=== PATIENT | male | born 2000 | race Caucasian/White ===

== ENCOUNTER 2024-10-10 19:14 | Emergency (ER) | payer OTHER, SELFPAY ==
--- NOTE | ~2024-10-10 | XR_ITS ---
XR knee RT 3V Ordering provider: Francisca Renteria MD History: . RIGHT KNEE PAIN X 2 HRS. FELT POP WHILE PLAYING SOCCER. . Comparison: None. FINDINGS: BONES: No acute fracture. Mild lateral dislocation of the patella is possible.. Clinical evaluation a dvised. JOINT SPACES: Normal. SOFT TISSUES: Normal. IMPRESSION: No acute osseous abnormality right knee. Possible mild lateral subluxation of the patella. Clinical evaluation advised. Reviewed, dictated and finalized at location A.
--- OUTSIDE RECORDS SUMMARY | 2024-10-10 19:16 | XMS_ITS | Clinical Summary ---
Author Organization [facility] Address [address] [place] [address] Phone Care Team Providers Care Spring Fitter Name Role Phone Provider, None Primary Care Provider Unavailabl e Allergies No known active allergies Medications No known medications Social History Tobacco Use Types Packs/Day Years Used Date Smoking Tobacco: Former Cigarettes Q uit: 08/05/2020 Smokeless Tobacco: Current Alcohol Use Standard Drinks/Week Comments No 0 (1 standard drink = 0.6 oz pur e alcohol) Sex and Gender Information Value Date Recorded Sex Assigned at Not on file Legal Sex Male 8:12 PM CDT Gender Identity Not on file Sexual Orientation Not on file Last Filed Vital Signs Vital Sign Reading Time Taken Comments Blood Pressure 150/89 08/20/2020 12:01 AM LOG INSPECTOR Pulse 89 08/20/2020 12:01 AM LOG INSPECTOR Temperature 37 C (98.6 F) 01/22/2018 6:52 PM CDT Respiratory Rate 18 08/20/2020 12:01 AM LOG INSPECTOR Oxygen Saturation 99% 08/20/2020 12:01 AM LOG INSPECTOR Inhaled Oxygen Concentration - - Weight 77.1 kg (170 lb) 08/19/2020 9:38 PM LOG INSPECTOR Height 180.3 cm (5' 11 ) 08/19/2020 9:38 PM LOG INSPECTOR Body Mass Index 23.71 08/19/2020 9:38 PM LOG INSPECTOR Plan of Treatment Not on file Insurance [facility] Care Teams Spring Fitter Relationship Specialty Start Date End Date Provider, None [place] PCP - General 08/19/20
--- OUTSIDE RECORDS SUMMARY | 2024-10-10 19:16 | XMS_ITS | Clinical Summary ---
Author Organization [facility] Address [address] [place] [id number] Care Team Providers Care Route Service Manager Name Role Phone None, Provider MD Primary Care Provider Unavaila ble Allergies No known active allergies Medications No known medications Social History Tobacco Use Types Packs/Day Years Used Date Smoking Tobacco: Every Day Cigarettes Smokeless Tobacco: Current Chew Sex and Gender Information Value Date Recorded Sex Assigned at Not on file Legal Sex Male 11:18 AM CDT Gender Identity Not on file Sexual Orientation Not on file Last Filed Vital Signs Vital Sign Reading Time Taken Comments Blood Pressure 154/89 07/21/2020 3:30 PM HARVESTING SUPERVISOR Pulse 87 07/21/2020 3:25 PM HARVESTING SUPERVISOR Temperature 36.7 C (98 F) 07/21/2020 3:25 PM HARVESTING SUPERVISOR Respiratory Rate 18 07/21/2020 3:25 PM HARVESTING SUPERVISOR Oxygen Saturation 100% 07/21/2020 3:25 PM HARVESTING SUPERVISOR Inhaled Oxygen Concentration - - Weight 77.1 kg (170 lb) 07/21/2020 3:25 PM HARVESTING SUPERVISOR Height 180.3 cm (5' 11 ) 07/21/2020 3:25 PM HARVESTING SUPERVISOR Body Mass Index 23.71 07/21/2020 3:25 PM HARVESTING SUPERVISOR Plan of Treatment Health Maintenance Due Date Last Done Comments Annual Physical 2002 Pneumococcal Vaccine: Pediatrics (0 to 5 Years) and At-Risk Patients (6 to 64 Years) (1 of 2 - PCV) 2005 DTaP, Tdap and Td Vaccines (6 - Tdap) 2010 07/19/2004, 03/20/2002, 02/14/2001, Additional history exists HPV Vaccines (2 - Male 2-dose series) 11/13/2013 05/16/2013 Hepatitis C 2017 Hepatitis B Vaccines (1 of 3 - 19+ 3-dose series) 2018 COVID-19 Vaccine (2023- season) 2024 Meningococcal Vaccine Aged Out 05/16/2013 No gonzalez nico eligible based on patient's age to complete this topic Meningococcal B Vaccine Aged Out No l onger eligible based on patient's age to complete this topic RSV Immunizations Under 20 Months Aged Out No longer eligible based on patient's age to complete this topic Insurance [facility] Care Teams Route Service Manager Relationship Specialty Start Date End Date None, Provider, PCP - General 09/25/19
[2024-10-10 19:17] VITALS: BP 151/82; PULSE 103; RESP 18; TEMP 36.8; O2SAT 99
--- OUTSIDE RECORDS SUMMARY | 2024-10-10 19:55 | XMS_ITS | Clinical Summary ---
Author Organization [facility] Address [address] [place] [id number] Care Team Providers Care Lighting Fixtures Decorator Name Role Phone None, Provider MD Primary [...] Comments Blood Pressure 154/89 07/21/2020 3:30 PM HORSE RACING MANAGER Pulse 87 07/21/2020 3:25 PM HORSE RACING MANAGER Temperature 36.7 C (98 F) 07/21/2020 3:25 PM HORSE RACING MANAGER Respiratory Rate 18 07/21/2020 3:25 PM HORSE RACING MANAGER Oxygen Saturation 100% 07/21/2020 3:25 PM HORSE RACING MANAGER Inhaled Oxygen Concentration - - Weight 77.1 kg (170 lb) 07/21/2020 3:25 PM HORSE RACING MANAGER Height 180.3 cm (5' 11 ) 07/21/2020 3:25 PM HORSE RACING MANAGER Body Mass Index 23.71 07/21/2020 3:25 PM HORSE RACING MANAGER Plan of Treatment Health Maintenance Due Date [...] patient's age to complete this topic Insurance [facility] Care Teams Lighting Fixtures Decorator Relationship Specialty Start Date End Date None, Provider, PCP - General 09/25/19
--- OUTSIDE RECORDS SUMMARY | 2024-10-10 19:55 | XMS_ITS | Clinical Summary ---
Author Organization [facility] Address [address] [place] [address] Phone Care Team Providers Care Fat Purification Worker Name Role Phone Provider, None Primary Care [...] Comments Blood Pressure 150/89 08/20/2020 12:01 AM CAD DETAILER Pulse 89 08/20/2020 12:01 AM CAD DETAILER Temperature 37 C (98.6 F) 01/22/2018 6:52 PM CDT Respiratory Rate 18 08/20/2020 12:01 AM CAD DETAILER Oxygen Saturation 99% 08/20/2020 12:01 AM CAD DETAILER Inhaled Oxygen Concentration - - Weight 77.1 kg (170 lb) 08/19/2020 9:38 PM CAD DETAILER Height 180.3 cm (5' 11 ) 08/19/2020 9:38 PM CAD DETAILER Body Mass Index 23.71 08/19/2020 9:38 PM CAD DETAILER Plan of Treatment Not on file Insurance [facility] Care Teams Fat Purification Worker Relationship Specialty Start Date End Date Provider, None [place] PCP - General 08/19/20
--- NOTE | 2024-10-10 20:00 | ED.LOWEXIN ---
HPI - Extremity Injury (Lower) General Chief Complaint: Extremity Injury, Lower Stated Complaint: lower extremity injury Related Data Allergies Allergy/AdvReac Type Severity Reaction Status Date / Time No Known Allergies Allergy Verified 10/10/24 19:29 Course Vital Signs Vital signs: Vital Signs Temperature 36.8 C 10/10/24 19:17 Pulse Rate 103 H 10/10/24 19:17 Respiratory Rate 18 10/10/24 19:17 Blood Pressure 151/82 H 10/10/24 19:17 Pulse Oximetry 99 10/10/24 19:17 Oxygen Delivery Room Air 10/10/24 19:17 Temperature 36.8 C 10/10/24 19:17 Pulse Rate 103 H 10/10/24 19:17 Respiratory Rate 18 10/10/24 19:17 Blood Pressure 151/82 H 10/10/24 19:17 Pulse Oximetry 99 10/10/24 19:17 Oxygen Delivery Room Air 10/10/24 19:17 MDM - Extremity Injury (Lower) Imaging Data Radiologist's impression: Impressions Knee X-Ray 10/10/24 19:42 IMPRESSION: No acute osseous abnormality right knee. Possible mild lateral subluxation of the patella. Clinical evaluation advised. Discharge Plan Discharge Clinical Impression: Right knee sprain Patient Disposition: Home Condition: Stable Instructions: Knee Sprain (ED) Additional Instructions: Return if symptoms are worsening , call your family physician /orthopedic for appointment, take Tylenol as as needed for aches and pain, continue home medications. Patient Language: Luxembourgish Prescriptions: New naproxen [Naprosyn] 500 mg tablet 500 mg PO BID PRN (Reason: pain) Qty: 14 0RF Follow-up/Referrals: Jay Valle MD [Primary Care Provider] -
[2024-10-10 20:18] VITALS: BP 140/80; PULSE 94; RESP 16; O2SAT 100
== END 2024-10-10 20:21 | disposition home or self-care (01) ==
PROVIDERS: Emergency Provider Emergency Medicine; PCP Family Medicine
DX: S83.91XA Sprain of unspecified site of right knee, initial encounter (principal); X58.XXXA Exposure to other specified factors, initial encounter
CPT/HCPCS: 73562; 99283; L1830